=== PATIENT | male | born 1945 | race Caucasian/White ===

== ENCOUNTER 2016-07-14 18:41 | Inpatient (IN) | payer MEDICARE, BC ==
[~2016-07-14] VITALS: Ht 185.4 cm; Wt 87.3 kg
[2016-07-14 18:50] LABS: GLUCOSE,POINT OF CARE 142 MG/DL (70-110)
[2016-07-14] MEDS ORDERED: VITAD1000 PO (19:01)
[2016-07-14] MEDS ORDERED: SIMV-260 PO (19:01)
[2016-07-14] MEDS ORDERED: AMLO-512 PO (19:01)
[2016-07-14] MEDS ORDERED: ASPI81 PO (19:01)
[2016-07-14] MEDS ORDERED: METF500T4 PO (19:01)
[2016-07-14] MEDS ORDERED: CLOP75 PO (19:01)
[2016-07-14] MEDS ORDERED: FURO20 PO (19:01)
[2016-07-14] MEDS ORDERED: BENA20 PO (19:01)
[2016-07-14] MEDS ORDERED: LOSA25TA21 PO (19:01)
[2016-07-14] MEDS ORDERED: BENAZEPRIL PO (19:02)
[2016-07-14 19:40] LABS: BASOPHILS % (AUTO) 0.3 % (0.0-2.0); EOSINOPHILS % (AUTO) 0.1 % (1.0-6.0); HEMATOCRIT 37.7 % (41-53); HEMOGLOBIN 12.3 g/dL (13.5-17.5); LYMPHOCYTES # (AUTO) 0.5 K/uL (1.0-4.8); LYMPHOCYTES % (AUTO) 5.8 % (22.0-44.0); MEAN CORPUSCULAR HEMOGLOBIN 31.3 pg (26.0-34.0); MEAN CORPUSCULAR HGB CONC 32.7 G/dL (31.0-37.0); MEAN CORPUSCULAR VOLUME 96 fL (80-100); MONOCYTES # (AUTO) 0.7 K/uL (0.1-1.0); MONOCYTES % (AUTO) 8.2 % (2.0-9.0); NEUTROPHILS # (AUTO) 7.8 K/uL (1.8-7.7); NEUTROPHILS % (AUTO) 85.6 % (40.0-70.0); PLATELET COUNT (AUTO) 312 K/uL (150-450); RED BLOOD CELL COUNT(AUTO) 3.95 MIL/uL (4.50-5.90); RED CELL DISTRIBUTION WIDTH 15.9 % (11.5-14.5); WHITE BLOOD COUNT (AUTO) 9.1 K/uL (4.5-11.0)
[2016-07-14 19:47] LABS: ANION GAP 13 mmol/L (8-16); CALCIUM, TOTAL 9.3 mg/dL (8.8-10.5); CARBON DIOXIDE 27 mmol/L (22-29); CHLORIDE 93 mmol/L (98-107); CREATININE 1.13 mg/dL (0.60-1.30); GLOMERULAR FILTR. RATE CALC > 60 mL/min (>60); POTASSIUM 4.3 mmol/L (3.5-5.1); SODIUM SERUM 133 mmol/L (136-145); UREA NITROGEN, BLOOD 20 mg/dL (7-18)
[2016-07-14 19:53] LABS: RBC MORPHOLOGY COMMENT NORMAL RBC MORPH
[2016-07-14 19:54] LABS: PROTHROMBIN TIME 10.7 SEC (9.4-11.6)
[2016-07-14 20:04] LABS: B-TYPE NATRIURETIC PEPTIDE 1770 pg/mL (0-100)
[2016-07-14 20:19] LABS: ALANINE AMINOTRANSFERASE 62 U/L (12-78); ALBUMIN 4.2 g/dL (3.4-5.0); ASPARTATE AMINOTRANSFERASE 57 U/L (15-37); BILIRUBIN,TOTAL 0.5 mg/dL (0.1-1.0); CREATINE KINASE MB 3.2 ng/mL (0-5); CREATINE KINASE, TOTAL 106 U/L (39-308); TOTAL PROTEIN, SERUM 8.8 g/dL (6.4-8.2)
[2016-07-14] MEDS ORDERED: SODIUM CHLORIDE 0.9% 100 ML ONE (20:49)
[2016-07-14] MEDS ORDERED: IOVERSOL 350 MG/ML 100 ML VIAL ONE (20:50)
[2016-07-14] MEDS ORDERED: FUROSEMIDE 40 MG/4 ML VIAL IVP ONE (21:45)
[2016-07-14] MEDS ORDERED: ONDANSETRON HCL 4 MG/2 ML VIAL IVP PRN (22:30)
[2016-07-14] MEDS ORDERED: ALBUTEROL SULFATE 2.5 MG/0.5 ML NEB SOLUTION NEB PRN (22:30)
[2016-07-14] MEDS ORDERED: ACETAMINOPHEN 325 MG TABLET PO PRN (22:30)
[2016-07-14] MEDS ORDERED: OxyCODONE HCL/ACETAMINOPHEN 5-325 MG TABLET PO ONE (23:00)
[2016-07-14 23:45] VITALS: BP 143/92
[2016-07-15] MEDS: HEPARIN SODIUM,PORCINE 5,000 UNITS/ML VIAL SQ SCH ×3 (01:12→16:00)
[2016-07-15] MEDS ORDERED: 0.9% SODIUM CHLORIDE 5 ML NEB SOLUTION NEB ONE (04:02)
[2016-07-15 04:51] VITALS: BP 131/78
[2016-07-15 07:31] VITALS: BP 125/83
[2016-07-15] MEDS: CLOPIDOGREL BISULFATE 75 MG TABLET PO SCH (08:23)
[2016-07-15] MEDS: SIMVASTATIN 20 MG TABLET PO SCH (08:23)
[2016-07-15] MEDS: MetFORMIN HCL 500 MG TABLET PO SCH (08:23)
[2016-07-15] MEDS: AmLODIPine BESYLATE 10 MG TABLET PO SCH (08:23)
[2016-07-15] MEDS: CHOLECALCIFEROL (VIT D3) 1,000 UNITS TABLET PO SCH (08:24)
[2016-07-15] MEDS: ASPIRIN 81 MG CHEWABLE TABLET PO SCH (08:24)
[2016-07-15] MEDS: PANTOPRAZOLE SODIUM 40 MG DR TABLET PO SCH (08:24)
[2016-07-15] MEDS ORDERED: FUROSEMIDE 40 MG/4 ML VIAL IVP SCH (09:00)
[2016-07-15] MEDS ORDERED: FUROSEMIDE 20 MG/2 ML VIAL IVP SCH (09:00)
[2016-07-15] MEDS: LOSARTAN POTASSIUM 25 MG TABLET PO SCH (10:15)
[2016-07-15] MEDS: NITROGLYCERIN 2% (1 GM=INCH) PACKET TP SCH ×3 (10:15→17:02)
[2016-07-15 11:01] VITALS: BP 112/74
[2016-07-15] MEDS: OxyCODONE HCL/ACETAMINOPHEN 5-325 MG TABLET PO PRN (12:54)
[2016-07-15 14:53] VITALS: BP 102/64
[2016-07-15 19:38] VITALS: BP 106/71
[2016-07-15] MEDS: TIOTROPIUM BROMIDE 18 MCG/INH HANDIHALER [5] IH SCH (21:53)
[2016-07-15] MEDS: NICOTINE 21 MG/24 HOUR PATCH TD SCH (21:54)
[2016-07-15] MEDS: ZOLPIDEM TARTRATE 10 MG TABLET PO PRN (21:54)
[2016-07-15] MEDS: FUROSEMIDE 20 MG/2 ML VIAL IVP SCH (21:54)
[2016-07-15] MEDS: BUDESONIDE 0.5 MG/2 ML NEB SOLUTION NEB SCH (23:36)
[2016-07-15 23:47] VITALS: BP 107/77
[2016-07-16] VITALS (8 sets, daily range): BP systolic 97–118; BP diastolic 60–76
[2016-07-16] MEDS: HEPARIN SODIUM,PORCINE 5,000 UNITS/ML VIAL SQ SCH ×2 (00:01→08:59)
[2016-07-16] MEDS: NITROGLYCERIN 2% (1 GM=INCH) PACKET TP SCH ×4 (06:16→17:33)
[2016-07-16 06:36] LABS: EOSINOPHILS % (AUTO) 0.2 % (1.0-6.0); HEMATOCRIT 36.7 % (41-53); HEMOGLOBIN 11.9 g/dL (13.5-17.5); LYMPHOCYTES % (AUTO) 11.8 % (22.0-44.0); MEAN CORPUSCULAR HEMOGLOBIN 31.1 pg (26.0-34.0); MEAN CORPUSCULAR HGB CONC 32.4 G/dL (31.0-37.0); MEAN CORPUSCULAR VOLUME 96 fL (80-100); MONOCYTES # (AUTO) 0.8 K/uL (0.1-1.0); MONOCYTES % (AUTO) 10.1 % (2.0-9.0); NEUTROPHILS # (AUTO) 6.5 K/uL (1.8-7.7); NEUTROPHILS % (AUTO) 77.9 % (40.0-70.0); PLATELET COUNT (AUTO) 289 K/uL (150-450); RED BLOOD CELL COUNT(AUTO) 3.82 MIL/uL (4.50-5.90); WHITE BLOOD COUNT (AUTO) 8.3 K/uL (4.5-11.0)
[2016-07-16] MEDS: OxyCODONE HCL/ACETAMINOPHEN 5-325 MG TABLET PO PRN ×2 (06:44→21:52)
[2016-07-16 07:07] LABS: ALANINE AMINOTRANSFERASE 37 U/L (12-78); ALBUMIN 3.2 g/dL (3.4-5.0); ANION GAP 10 mmol/L (8-16); ASPARTATE AMINOTRANSFERASE 24 U/L (15-37); BILIRUBIN,TOTAL 0.7 mg/dL (0.1-1.0); CALCIUM, TOTAL 9.2 mg/dL (8.8-10.5); CARBON DIOXIDE 29 mmol/L (22-29); CHLORIDE 95 mmol/L (98-107); CREATININE 1.07 mg/dL (0.60-1.30); GLOMERULAR FILTR. RATE CALC > 60 mL/min (>60); SODIUM SERUM 134 mmol/L (136-145); TOTAL PROTEIN, SERUM 7.6 g/dL (6.4-8.2); UREA NITROGEN, BLOOD 21 mg/dL (7-18)
[2016-07-16] MEDS: BUDESONIDE 0.5 MG/2 ML NEB SOLUTION NEB SCH (08:26)
[2016-07-16] MEDS: LOSARTAN POTASSIUM 25 MG TABLET PO SCH (08:57)
[2016-07-16] MEDS: TIOTROPIUM BROMIDE 18 MCG/INH HANDIHALER [5] IH SCH (08:58)
[2016-07-16] MEDS: SIMVASTATIN 20 MG TABLET PO SCH (08:58)
[2016-07-16] MEDS: CLOPIDOGREL BISULFATE 75 MG TABLET PO SCH (08:58)
[2016-07-16] MEDS: PANTOPRAZOLE SODIUM 40 MG DR TABLET PO SCH (08:58)
[2016-07-16] MEDS: AmLODIPine BESYLATE 10 MG TABLET PO SCH (08:58)
[2016-07-16] MEDS: ASPIRIN 81 MG CHEWABLE TABLET PO SCH (08:58)
[2016-07-16] MEDS: CHOLECALCIFEROL (VIT D3) 1,000 UNITS TABLET PO SCH (08:58)
[2016-07-16] MEDS: FUROSEMIDE 20 MG/2 ML VIAL IVP SCH ×2 (08:59→22:07)
[2016-07-16] MEDS: NICOTINE 21 MG/24 HOUR PATCH TD SCH (08:59)
[2016-07-16] MEDS ORDERED: LEVALBUTEROL HCL 0.63 MG/3 ML NEB SOLUTION NEB PRN (10:15)
[2016-07-16] MEDS: METOPROLOL TARTRATE 25 MG TABLET PO SCH ×2 (11:27→22:07)
[2016-07-16] MEDS: AMIODARONE HCL 200 MG TABLET PO SCH ×2 (11:27→22:08)
[2016-07-16] MEDS ORDERED: BENA20 PO (16:53)
[2016-07-16] MEDS: MetFORMIN HCL 500 MG TABLET PO SCH (18:00)
[2016-07-16] MEDS ORDERED: RIVAROXABAN 15 MG TABLET PO SCH (18:00)
[2016-07-16] MEDS ORDERED: HEPARIN SODIUM,PORCINE 5,000 UNITS/ML VIAL IVP ONE (18:45)
[2016-07-16] MEDS ORDERED: HEPARIN SODIUM,PORCINE 5,000 UNITS/ML VIAL IVP PRN ×2 (18:45)
[2016-07-16 19:20] LABS: BASOPHILS % (AUTO) 0.3 % (0.0-2.0); EOSINOPHILS % (AUTO) 0.7 % (1.0-6.0); HEMATOCRIT 34.8 % (41-53); HEMOGLOBIN 11.4 g/dL (13.5-17.5); LYMPHOCYTES # (AUTO) 0.9 K/uL (1.0-4.8); LYMPHOCYTES % (AUTO) 10.9 % (22.0-44.0); MEAN CORPUSCULAR HEMOGLOBIN 31.2 pg (26.0-34.0); MEAN CORPUSCULAR HGB CONC 32.7 G/dL (31.0-37.0); MEAN CORPUSCULAR VOLUME 96 fL (80-100); MONOCYTES # (AUTO) 0.9 K/uL (0.1-1.0); MONOCYTES % (AUTO) 11.8 % (2.0-9.0); NEUTROPHILS # (AUTO) 6.1 K/uL (1.8-7.7); NEUTROPHILS % (AUTO) 76.3 % (40.0-70.0); PLATELET COUNT (AUTO) 301 K/uL (150-450); RED BLOOD CELL COUNT(AUTO) 3.64 MIL/uL (4.50-5.90)
[2016-07-16 19:31] LABS: INR 1.3 (0.9-1.1); PROTHROMBIN TIME 13.4 SEC (9.4-11.6)
[2016-07-16] MEDS: ZOLPIDEM TARTRATE 10 MG TABLET PO PRN (22:08)
[2016-07-16] MEDS: HEPARIN SODIUM 25000 UNITS/D5W 250 ML IV PRN (22:28)
[2016-07-17] VITALS (7 sets, daily range): BP systolic 95–116; BP diastolic 62–83
[2016-07-17] MEDS: NITROGLYCERIN 2% (1 GM=INCH) PACKET TP SCH ×5 (00:26→23:39)
[2016-07-17 06:49] LABS: BASOPHILS % (AUTO) 0.8 % (0.0-2.0); EOSINOPHILS % (AUTO) 1.1 % (1.0-6.0); HEMATOCRIT 37.7 % (41-53); HEMOGLOBIN 12.2 g/dL (13.5-17.5); LYMPHOCYTES # (AUTO) 0.9 K/uL (1.0-4.8); LYMPHOCYTES % (AUTO) 12.4 % (22.0-44.0); MEAN CORPUSCULAR HEMOGLOBIN 31.3 pg (26.0-34.0); MEAN CORPUSCULAR HGB CONC 32.4 G/dL (31.0-37.0); MEAN CORPUSCULAR VOLUME 96 fL (80-100); MONOCYTES # (AUTO) 0.6 K/uL (0.1-1.0); MONOCYTES % (AUTO) 7.6 % (2.0-9.0); NEUTROPHILS # (AUTO) 5.8 K/uL (1.8-7.7); NEUTROPHILS % (AUTO) 78.1 % (40.0-70.0); PLATELET COUNT (AUTO) 262 K/uL (150-450); RED CELL DISTRIBUTION WIDTH 16.2 % (11.5-14.5); WHITE BLOOD COUNT (AUTO) 7.4 K/uL (4.5-11.0)
[2016-07-17] MEDS: AMIODARONE HCL 200 MG TABLET PO SCH ×2 (08:20→20:31)
[2016-07-17] MEDS: NICOTINE 21 MG/24 HOUR PATCH TD SCH (08:20)
[2016-07-17] MEDS: FUROSEMIDE 20 MG/2 ML VIAL IVP SCH ×2 (08:20→20:31)
[2016-07-17] MEDS: LOSARTAN POTASSIUM 25 MG TABLET PO SCH (08:20)
[2016-07-17] MEDS: MetFORMIN HCL 500 MG TABLET PO SCH ×2 (08:21→17:30)
[2016-07-17] MEDS: PANTOPRAZOLE SODIUM 40 MG DR TABLET PO SCH (08:21)
[2016-07-17] MEDS: METOPROLOL TARTRATE 25 MG TABLET PO SCH ×2 (08:21→21:00)
[2016-07-17] MEDS: AmLODIPine BESYLATE 10 MG TABLET PO SCH (08:21)
[2016-07-17] MEDS: CHOLECALCIFEROL (VIT D3) 1,000 UNITS TABLET PO SCH (08:22)
[2016-07-17] MEDS: TIOTROPIUM BROMIDE 18 MCG/INH HANDIHALER [5] IH SCH (08:22)
[2016-07-17] MEDS: SIMVASTATIN 20 MG TABLET PO SCH (08:22)
[2016-07-17] MEDS: HEPARIN SODIUM 25000 UNITS/D5W 250 ML IV PRN (15:36)
[2016-07-18] VITALS (7 sets, daily range): BP systolic 97–125; BP diastolic 56–74
[2016-07-18] MEDS: NITROGLYCERIN 2% (1 GM=INCH) PACKET TP SCH ×4 (05:40→23:20)
[2016-07-18 06:42] LABS: BASOPHILS % (AUTO) 0.1 % (0.0-2.0); EOSINOPHILS % (AUTO) 0.9 % (1.0-6.0); HEMATOCRIT 32.5 % (41-53); HEMOGLOBIN 10.6 g/dL (13.5-17.5); LYMPHOCYTES # (AUTO) 0.9 K/uL (1.0-4.8); LYMPHOCYTES % (AUTO) 15.6 % (22.0-44.0); MEAN CORPUSCULAR HEMOGLOBIN 31.1 pg (26.0-34.0); MEAN CORPUSCULAR HGB CONC 32.6 G/dL (31.0-37.0); MEAN CORPUSCULAR VOLUME 95 fL (80-100); MONOCYTES # (AUTO) 0.8 K/uL (0.1-1.0); NEUTROPHILS # (AUTO) 4.2 K/uL (1.8-7.7); NEUTROPHILS % (AUTO) 69.4 % (40.0-70.0); PLATELET COUNT (AUTO) 265 K/uL (150-450); RED BLOOD CELL COUNT(AUTO) 3.41 MIL/uL (4.50-5.90); RED CELL DISTRIBUTION WIDTH 15.8 % (11.5-14.5)
[2016-07-18] MEDS: MetFORMIN HCL 500 MG TABLET PO SCH ×2 (08:00→18:06)
[2016-07-18] MEDS: FUROSEMIDE 20 MG/2 ML VIAL IVP SCH ×2 (09:22→21:00)
[2016-07-18] MEDS: OXYGEN THERAPY IH SCH ×2 (09:22→20:41)
[2016-07-18] MEDS: NICOTINE 21 MG/24 HOUR PATCH TD SCH (09:26)
[2016-07-18] MEDS: TIOTROPIUM BROMIDE 18 MCG/INH HANDIHALER [5] IH SCH (09:27)
[2016-07-18] MEDS ORDERED: FentaNYL CITRATE-PF 100 MCG/2 ML VIAL ONE (11:37)
[2016-07-18] MEDS ORDERED: MIDAZOLAM HCL 2 MG/2 ML VIAL ONE (11:37)
[2016-07-18] MEDS ORDERED: LIDOCAINE HCL/PF 1% 30 ML VIAL ONE (11:38)
[2016-07-18] MEDS ORDERED: MIDAZOLAM HCL 2 MG/2 ML VIAL IVP ONE (12:21)
[2016-07-18] MEDS ORDERED: FentaNYL CITRATE-PF 100 MCG/2 ML VIAL IVP ONE (12:21)
[2016-07-18] MEDS: LOSARTAN POTASSIUM 25 MG TABLET PO SCH (14:00)
[2016-07-18] MEDS: SIMVASTATIN 20 MG TABLET PO SCH (14:27)
[2016-07-18] MEDS: METOPROLOL TARTRATE 25 MG TABLET PO SCH ×2 (14:27→21:00)
[2016-07-18] MEDS: PANTOPRAZOLE SODIUM 40 MG DR TABLET PO SCH (14:27)
[2016-07-18] MEDS: AMIODARONE HCL 200 MG TABLET PO SCH ×2 (14:28→20:41)
[2016-07-18] MEDS: CHOLECALCIFEROL (VIT D3) 1,000 UNITS TABLET PO SCH (14:28)
[2016-07-18] MEDS: AmLODIPine BESYLATE 10 MG TABLET PO SCH (14:30)
[2016-07-18] MEDS ORDERED: HEPARIN SODIUM,PORCINE 5,000 UNITS/ML VIAL IVP PRN ×2 (17:15)
[2016-07-18] MEDS ORDERED: RIVAROXABAN 15 MG TABLET PO SCH (18:00)
[2016-07-18 18:16] LABS: BASOPHILS % (AUTO) 0.1 % (0.0-2.0); EOSINOPHILS % (AUTO) 0.9 % (1.0-6.0); HEMATOCRIT 33.9 % (41-53); LYMPHOCYTES # (AUTO) 0.8 K/uL (1.0-4.8); LYMPHOCYTES % (AUTO) 14.3 % (22.0-44.0); MEAN CORPUSCULAR HEMOGLOBIN 30.9 pg (26.0-34.0); MEAN CORPUSCULAR HGB CONC 32.4 G/dL (31.0-37.0); MEAN CORPUSCULAR VOLUME 95 fL (80-100); MONOCYTES # (AUTO) 0.8 K/uL (0.1-1.0); MONOCYTES % (AUTO) 15.1 % (2.0-9.0); NEUTROPHILS # (AUTO) 3.8 K/uL (1.8-7.7); NEUTROPHILS % (AUTO) 69.6 % (40.0-70.0); PLATELET COUNT (AUTO) 300 K/uL (150-450); RED BLOOD CELL COUNT(AUTO) 3.56 MIL/uL (4.50-5.90); RED CELL DISTRIBUTION WIDTH 15.9 % (11.5-14.5); WHITE BLOOD COUNT (AUTO) 5.4 K/uL (4.5-11.0)
[2016-07-18 18:29] LABS: PROTHROMBIN TIME 10.5 SEC (9.4-11.6)
[2016-07-18] MEDS: HEPARIN SODIUM 25000 UNITS/D5W 250 ML IV PRN (20:46)
[2016-07-19] VITALS (16 sets, daily range): BP systolic 100–153; BP diastolic 61–90
[2016-07-19] MEDS: HEPARIN SODIUM 25000 UNITS/D5W 250 ML IV PRN (04:14)
[2016-07-19] MEDS: NITROGLYCERIN 2% (1 GM=INCH) PACKET TP SCH ×2 (05:49→11:50)
[2016-07-19 06:58] LABS: BASOPHILS # (AUTO) 0.01 K/uL (0.00-0.20); BASOPHILS % (AUTO) 0.1 % (0.0-2.0); EOSINOPHILS # (AUTO) 0.02 K/uL (0.00-0.70); EOSINOPHILS % (AUTO) 0.22 % (1.0-6.0); HEMATOCRIT 32.2 % (41-53); HEMOGLOBIN 10.6 g/dL (13.5-17.5); LYMPHOCYTES # (AUTO) 0.7 K/uL (1.0-4.8); LYMPHOCYTES % (AUTO) 8.4 % (22.0-44.0); MEAN CORPUSCULAR HEMOGLOBIN 31.4 pg (26.0-34.0); MEAN CORPUSCULAR VOLUME 95 fL (80-100); MONOCYTES # (AUTO) 1.2 K/uL (0.1-1.0); MONOCYTES % (AUTO) 15.3 % (2.0-9.0); PLATELET COUNT (AUTO) 302 K/uL (150-450); RED BLOOD CELL COUNT(AUTO) 3.38 MIL/uL (4.50-5.90); RED CELL DISTRIBUTION WIDTH 15.3 % (11.5-14.5); WHITE BLOOD COUNT (AUTO) 7.8 K/uL (4.5-11.0)
[2016-07-19] MEDS: MetFORMIN HCL 500 MG TABLET PO SCH (07:59)
[2016-07-19] MEDS: OXYGEN THERAPY IH SCH ×2 (08:11→21:07)
[2016-07-19] MEDS: CHOLECALCIFEROL (VIT D3) 1,000 UNITS TABLET PO SCH (08:12)
[2016-07-19] MEDS: FUROSEMIDE 20 MG/2 ML VIAL IVP SCH (08:12)
[2016-07-19] MEDS: AmLODIPine BESYLATE 10 MG TABLET PO SCH (08:12)
[2016-07-19] MEDS: AMIODARONE HCL 200 MG TABLET PO SCH (08:12)
[2016-07-19] MEDS: TIOTROPIUM BROMIDE 18 MCG/INH HANDIHALER [5] IH SCH (08:12)
[2016-07-19] MEDS: METOPROLOL TARTRATE 25 MG TABLET PO SCH (08:12)
[2016-07-19] MEDS: PANTOPRAZOLE SODIUM 40 MG DR TABLET PO SCH (08:12)
[2016-07-19] MEDS: SIMVASTATIN 20 MG TABLET PO SCH (08:12)
[2016-07-19] MEDS: NICOTINE 21 MG/24 HOUR PATCH TD SCH (08:13)
[2016-07-19] MEDS: LOSARTAN POTASSIUM 25 MG TABLET PO SCH (08:13)
[2016-07-19] MEDS ORDERED: CLOPIDOGREL BISULFATE 75 MG TABLET PO SCH (09:00)
[2016-07-19] MEDS ORDERED: IOHEXOL 300 MG/ML 150 ML VIAL ONE (12:43)
[2016-07-19] MEDS ORDERED: HEPARIN SODIUM 1000 UNITS/NS 1,000 ML ONE (12:43)
[2016-07-19] MEDS ORDERED: SODIUM BICARBONATE 50 MEQ/50 ML VIAL ONE (12:43)
[2016-07-19] MEDS ORDERED: LIDOCAINE HCL/PF 1% 30 ML VIAL ONE (12:43)
[2016-07-19] MEDS ORDERED: SODIUM CHLORIDE 0.9% 500 ML IV ONE (13:24)
[2016-07-19] MEDS ORDERED: HEPARIN SODIUM 2,000 UNITS in HEPARIN SODIUM 1000 UNITS/NS 1,000 ML IARTER ONE (13:24)
[2016-07-19] MEDS ORDERED: LIDOCAINE 1% 30 ML/SOD BICARB 8.4% 4 ML SQ ONE (13:30)
[2016-07-19] MEDS ORDERED: IOHEXOL 300 MG/ML 150 ML VIAL IARTER ONE (13:30)
[2016-07-19] MEDS ORDERED: VERAPAMIL HCL 2.5 MG/ML 2 ML VIAL ONE (13:34)
[2016-07-19] MEDS ORDERED: NITROGLYCERIN 50 MG/D5% WATER 250 ML ONE (13:34)
[2016-07-19] MEDS ORDERED: FUROSEMIDE 40 MG/4 ML VIAL ONE (13:36)
[2016-07-19] MEDS ORDERED: IOHEXOL 300 MG/ML 50 ML VIAL ONE (13:41)
[2016-07-19] MEDS ORDERED: IOHEXOL 300 MG/ML 100 ML VIAL ONE ×2 (13:41→14:09)
[2016-07-19] MEDS ORDERED: HEPARIN SODIUM,PORCINE 5,000 UNITS/ML VIAL IVP ONE (13:45)
[2016-07-19] MEDS ORDERED: FUROSEMIDE 40 MG/4 ML VIAL IVP ONE (13:45)
[2016-07-19] MEDS ORDERED: IOHEXOL 300 MG/ML 50 ML VIAL IARTER ONE (13:45)
[2016-07-19] MEDS ORDERED: IOHEXOL 300 MG/ML 100 ML VIAL IARTER ONE (14:30)
[2016-07-19] MEDS ORDERED: VERAPAMIL HCL 2.5 MG/ML 2 ML VIAL ICOR ONE (14:30)
[2016-07-19] MEDS ORDERED: NITROGLYCERIN/D5W 50 MG/250 ML IV BOTTLE ICOR ONE (14:30)
[2016-07-19] MEDS ORDERED: FUROSEMIDE 40 MG/4 ML VIAL IVP SCH (21:00)
[2016-07-19] MEDS: CARVEDILOL 6.25 MG TABLET PO SCH (21:16)
[2016-07-19] MEDS: OxyCODONE HCL/ACETAMINOPHEN 5-325 MG TABLET PO PRN (21:16)
[2016-07-20] VITALS (8 sets, daily range): BP systolic 101–125; BP diastolic 57–73
[2016-07-20] MEDS: NITROGLYCERIN 2% (1 GM=INCH) PACKET TP SCH ×4 (01:19→19:19)
[2016-07-20] MEDS: OxyCODONE HCL/ACETAMINOPHEN 5-325 MG TABLET PO PRN ×2 (04:37→11:01)
[2016-07-20 06:14] LABS: BASOPHILS % (AUTO) 0.1 % (0.0-2.0); EOSINOPHILS % (AUTO) 1.1 % (1.0-6.0); HEMATOCRIT 31.9 % (41-53); HEMOGLOBIN 10.5 g/dL (13.5-17.5); LYMPHOCYTES # (AUTO) 0.6 K/uL (1.0-4.8); LYMPHOCYTES % (AUTO) 9.3 % (22.0-44.0); MEAN CORPUSCULAR HEMOGLOBIN 31.3 pg (26.0-34.0); MEAN CORPUSCULAR VOLUME 95 fL (80-100); MONOCYTES # (AUTO) 1.1 K/uL (0.1-1.0); MONOCYTES % (AUTO) 17.8 % (2.0-9.0); NEUTROPHILS # (AUTO) 4.5 K/uL (1.8-7.7); NEUTROPHILS % (AUTO) 71.7 % (40.0-70.0); PLATELET COUNT (AUTO) 273 K/uL (150-450); RED BLOOD CELL COUNT(AUTO) 3.36 MIL/uL (4.50-5.90); RED CELL DISTRIBUTION WIDTH 15.5 % (11.5-14.5); WHITE BLOOD COUNT (AUTO) 6.3 K/uL (4.5-11.0)
[2016-07-20 06:20] LABS: ANION GAP 7 mmol/L (8-16); CALCIUM, TOTAL 8.9 mg/dL (8.8-10.5); CARBON DIOXIDE 31 mmol/L (22-29); CHLORIDE 96 mmol/L (98-107); CREATINE KINASE, TOTAL 18 U/L (39-308); GLOMERULAR FILTR. RATE CALC 55 mL/min (>60); POTASSIUM 4.4 mmol/L (3.5-5.1); SODIUM SERUM 134 mmol/L (136-145); UREA NITROGEN, BLOOD 35 mg/dL (7-18)
[2016-07-20] MEDS: TIOTROPIUM BROMIDE 18 MCG/INH HANDIHALER [5] IH SCH (09:00)
[2016-07-20] MEDS: OXYGEN THERAPY IH SCH ×2 (09:00→20:06)
[2016-07-20] MEDS: LOSARTAN POTASSIUM 25 MG TABLET PO SCH (10:15)
[2016-07-20] MEDS: PANTOPRAZOLE SODIUM 40 MG DR TABLET PO SCH (10:15)
[2016-07-20] MEDS: NICOTINE 21 MG/24 HOUR PATCH TD SCH (10:15)
[2016-07-20] MEDS: SIMVASTATIN 20 MG TABLET PO SCH (10:16)
[2016-07-20] MEDS: CARVEDILOL 6.25 MG TABLET PO SCH ×2 (11:01→20:07)
[2016-07-20] MEDS: OxyCODONE HCL 5 MG IR TABLET PO SCH ×2 (14:00→20:06)
[2016-07-21] VITALS (7 sets, daily range): BP systolic 110–136; BP diastolic 59–82
[2016-07-21] MEDS: NITROGLYCERIN 2% (1 GM=INCH) PACKET TP SCH ×4 (00:29→17:46)
[2016-07-21 07:22] LABS: HEMATOCRIT 33.5 % (41-53); LYMPHOCYTES # (AUTO) 0.8 K/uL (1.0-4.8); MEAN CORPUSCULAR HEMOGLOBIN 31.1 pg (26.0-34.0); MEAN CORPUSCULAR HGB CONC 32.7 G/dL (31.0-37.0); MEAN CORPUSCULAR VOLUME 95 fL (80-100); MONOCYTES # (AUTO) 1.1 K/uL (0.1-1.0); MONOCYTES % (AUTO) 15.8 % (2.0-9.0); NEUTROPHILS # (AUTO) 4.9 K/uL (1.8-7.7); NEUTROPHILS % (AUTO) 71.2 % (40.0-70.0); PLATELET COUNT (AUTO) 329 K/uL (150-450); RED BLOOD CELL COUNT(AUTO) 3.53 MIL/uL (4.50-5.90); RED CELL DISTRIBUTION WIDTH 15.1 % (11.5-14.5); WHITE BLOOD COUNT (AUTO) 6.8 K/uL (4.5-11.0)
[2016-07-21 07:30] LABS: PROTHROMBIN TIME 10.7 SEC (9.4-11.6)
[2016-07-21 07:34] LABS: CALCIUM, TOTAL 8.8 mg/dL (8.8-10.5); CREATININE 1.2 mg/dL (0.60-1.30); MAGNESIUM 1.9 mg/dL (1.80-2.40); POTASSIUM 4.2 mmol/L (3.5-5.1)
[2016-07-21] MEDS: NICOTINE 21 MG/24 HOUR PATCH TD SCH (08:10)
[2016-07-21] MEDS: OxyCODONE HCL 5 MG IR TABLET PO SCH ×2 (08:21→20:38)
[2016-07-21] MEDS: OXYGEN THERAPY IH SCH ×2 (08:29→20:37)
[2016-07-21] MEDS ORDERED: HEPARIN SODIUM 1000 UNITS/NS 500 ML ONE (13:11)
[2016-07-21] MEDS: PANTOPRAZOLE SODIUM 40 MG DR TABLET PO SCH (14:36)
[2016-07-21] MEDS: CARVEDILOL 6.25 MG TABLET PO SCH ×2 (14:36→20:38)
[2016-07-21] MEDS: LOSARTAN POTASSIUM 25 MG TABLET PO SCH (14:37)
[2016-07-21] MEDS: SIMVASTATIN 20 MG TABLET PO SCH (14:37)
[2016-07-21] MEDS: OxyCODONE HCL/ACETAMINOPHEN 5-325 MG TABLET PO PRN (14:39)
[2016-07-21] MEDS: TIOTROPIUM BROMIDE 18 MCG/INH HANDIHALER [5] IH SCH (15:50)
[2016-07-22] VITALS (16 sets, daily range): BP systolic 121–146; BP diastolic 59–88
[2016-07-22] MEDS: NITROGLYCERIN 2% (1 GM=INCH) PACKET TP SCH ×4 (00:19→17:24)
[2016-07-22] MEDS: OxyCODONE HCL/ACETAMINOPHEN 5-325 MG TABLET PO PRN (06:02)
[2016-07-22 06:53] LABS: PROTHROMBIN TIME 10.1 SEC (9.4-11.6)
[2016-07-22] MEDS ORDERED: KETAMINE HCL 50 MG/ML 10 ML VIAL IVP ONE (07:08)
[2016-07-22] MEDS ORDERED: FentaNYL CITRATE-PF 100 MCG/2 ML VIAL IVP ONE (07:08)
[2016-07-22] MEDS ORDERED: MIDAZOLAM HCL 2 MG/2 ML VIAL IVP ONE (07:08)
[2016-07-22 07:11] LABS: ALANINE AMINOTRANSFERASE 33 U/L (12-78); ALBUMIN 2.6 g/dL (3.4-5.0); ANION GAP 5 mmol/L (8-16); ASPARTATE AMINOTRANSFERASE 19 U/L (15-37); BILIRUBIN,TOTAL 0.4 mg/dL (0.1-1.0); CALCIUM, TOTAL 8.8 mg/dL (8.8-10.5); CARBON DIOXIDE 32 mmol/L (22-29); CHLORIDE 97 mmol/L (98-107); CREATININE 1.15 mg/dL (0.60-1.30); GLOMERULAR FILTR. RATE CALC > 60 mL/min (>60); POTASSIUM 4.6 mmol/L (3.5-5.1); SODIUM SERUM 134 mmol/L (136-145); TOTAL PROTEIN, SERUM 6.8 g/dL (6.4-8.2); UREA NITROGEN, BLOOD 26 mg/dL (7-18)
[2016-07-22 07:16] LABS: BASOPHILS # (AUTO) 0.01 K/uL (0.00-0.20); BASOPHILS % (AUTO) 0.2 % (0.0-2.0); EOSINOPHILS % (AUTO) 3.29 % (1.0-6.0); HEMATOCRIT 34.5 % (41-53); HEMOGLOBIN 11.2 g/dL (13.5-17.5); LYMPHOCYTES # (AUTO) 0.9 K/uL (1.0-4.8); LYMPHOCYTES % (AUTO) 14.9 % (22.0-44.0); MEAN CORPUSCULAR HEMOGLOBIN 30.7 pg (26.0-34.0); MEAN CORPUSCULAR HGB CONC 32.3 G/dL (31.0-37.0); MEAN CORPUSCULAR VOLUME 95 fL (80-100); MONOCYTES # (AUTO) 0.9 K/uL (0.1-1.0); MONOCYTES % (AUTO) 15.1 % (2.0-9.0); NEUTROPHILS # (AUTO) 4.1 K/uL (1.8-7.7); NEUTROPHILS % (AUTO) 66.5 % (40.0-70.0); PLATELET COUNT (AUTO) 388 K/uL (150-450); RED BLOOD CELL COUNT(AUTO) 3.63 MIL/uL (4.50-5.90); RED CELL DISTRIBUTION WIDTH 16.1 % (11.5-14.5); WHITE BLOOD COUNT (AUTO) 6.2 K/uL (4.5-11.0)
[2016-07-22] MEDS: TIOTROPIUM BROMIDE 18 MCG/INH HANDIHALER [5] IH SCH (08:52)
[2016-07-22] MEDS: NICOTINE 21 MG/24 HOUR PATCH TD SCH (08:56)
[2016-07-22] MEDS: OXYGEN THERAPY IH SCH ×2 (08:57→20:20)
[2016-07-22] MEDS: LOSARTAN POTASSIUM 25 MG TABLET PO SCH (09:00)
[2016-07-22] MEDS: OxyCODONE HCL 5 MG IR TABLET PO SCH ×2 (09:00→20:17)
[2016-07-22] MEDS: PANTOPRAZOLE SODIUM 40 MG DR TABLET PO SCH (09:00)
[2016-07-22] MEDS: CARVEDILOL 6.25 MG TABLET PO SCH ×2 (09:00→20:17)
[2016-07-22] MEDS ORDERED: SODIUM CHLORIDE 0.9% 1,000 ML IV ONE ×2 (11:30→11:32)
[2016-07-22] MEDS ORDERED: LIDOCAINE HCL/PF 1% 30 ML VIAL ONE ×2 (13:07→13:58)
[2016-07-22] MEDS ORDERED: SODIUM BICARBONATE 50 MEQ/50 ML VIAL ONE (13:07)
[2016-07-22] MEDS ORDERED: LIDOCAINE 1% 30 ML/SOD BICARB 8.4% 4 ML SQ ONE (14:00)
[2016-07-22] MEDS ORDERED: BUPIVACAINE LIPOSOME/PF 1.3%-13.3MG/ML SUSPENSION 20 ML VIAL INJ ONE (14:00)
[2016-07-22] MEDS: SIMVASTATIN 20 MG TABLET PO SCH (15:59)
[2016-07-22] MEDS ORDERED: SODIUM CHLORIDE 0.9% 100 ML ONE (20:17)
[2016-07-22] MEDS: CeFAZolin 1 GM/DEXTROSE 50 ML IV SCH (20:25)
[2016-07-22] MEDS ORDERED: EPHEDrine SULFATE 50 MG/ML VIAL IM ONE ×2 (22:19→22:24)
[2016-07-22] MEDS ORDERED: PHENYLEPHRINE HCL 10 MG/ML VIAL IVP ONE ×2 (22:19→22:24)
[2016-07-22] MEDS ORDERED: 0.9% SODIUM CHLORIDE 10 ML VIAL IVP ONE ×2 (22:19→22:24)
[2016-07-22] MEDS ORDERED: PROPOFOL 1% 20 ML VIAL IVP ONE ×2 (22:19→22:24)
[2016-07-23 00:01] VITALS: BP 120/72
[2016-07-23] MEDS: NITROGLYCERIN 2% (1 GM=INCH) PACKET TP SCH ×4 (00:22→18:56)
[2016-07-23] MEDS: OxyCODONE HCL/ACETAMINOPHEN 5-325 MG TABLET PO PRN (01:55)
[2016-07-23] MEDS: CeFAZolin 1 GM/DEXTROSE 50 ML IV SCH ×2 (01:55→09:49)
[2016-07-23 05:04] VITALS: BP 126/75
[2016-07-23] MEDS: OXYGEN THERAPY IH SCH ×2 (08:00→20:30)
[2016-07-23] MEDS ORDERED: FUROSEMIDE 40 MG/4 ML VIAL IVP ONE ×2 (08:45→16:00)
[2016-07-23] MEDS: SIMVASTATIN 20 MG TABLET PO SCH (09:00)
[2016-07-23] MEDS: NICOTINE 21 MG/24 HOUR PATCH TD SCH (09:00)
[2016-07-23] MEDS: OxyCODONE HCL 5 MG IR TABLET PO SCH ×2 (09:00→20:15)
[2016-07-23] MEDS: CARVEDILOL 6.25 MG TABLET PO SCH ×2 (09:00→20:15)
[2016-07-23] MEDS: TIOTROPIUM BROMIDE 18 MCG/INH HANDIHALER [5] IH SCH (09:00)
[2016-07-23] MEDS: PANTOPRAZOLE SODIUM 40 MG DR TABLET PO SCH (09:00)
[2016-07-23] MEDS: LOSARTAN POTASSIUM 25 MG TABLET PO SCH (09:00)
[2016-07-23 10:35] LABS: ABG A-A DIFF O2 590.5 mmHg (10-20.0); ABG BASE EXCESS -0.2 mmol/L (-2.0-3.0); ABG HCO3 23.2 mmol/L (22.0-26.0); ABG OXYHEMOGLOBIN 87.6 % (94.0-100.0); ABG PCO2 60 mmHg (35-45); ABG PH 7.268 (7.35-7.450); ALLEN TEST, BLOOD GAS Positive
[2016-07-23 12:00] VITALS: BP 139/99
[2016-07-23] MEDS: MethylPREDNISolone SOD SUCC 125 MG/2 ML VIAL IVP SCH ×2 (12:00→18:56)
[2016-07-23 12:34] LABS: ABG A-A DIFF O2 572.3 mmHg (10-20.0); ABG BASE EXCESS 0.8 mmol/L (-2.0-3.0); ABG HCO3 24.4 mmol/L (22.0-26.0); ABG OXYHEMOGLOBIN 94.2 % (94.0-100.0); ABG PCO2 55 mmHg (35-45); ABG PH 7.311 (7.35-7.450); ALLEN TEST, BLOOD GAS Positive; TEMPERATURE, FAHRENHEIT, BG 98.6 FAHREN (96.0-98.6)
[2016-07-23 13:28] LABS: CREATINE KINASE, TOTAL 156 U/L (39-308)
[2016-07-23] MEDS: HALOPERIDOL LACTATE 5 MG/ML VIAL IVP PRN ×2 (15:14→20:15)
[2016-07-23 16:00] VITALS: BP 137/97
[2016-07-23 18:09] LABS: ABG A-A DIFF O2 575.9 mmHg (10-20.0); ABG BASE EXCESS -1.7 mmol/L (-2.0-3.0); ABG HCO3 22.7 mmol/L (22.0-26.0); ABG OXYHEMOGLOBIN 95.2 % (94.0-100.0); ABG PCO2 48 mmHg (35-45); ABG PH 7.326 (7.35-7.450); TEMPERATURE, FAHRENHEIT, BG 98.6 FAHREN (96.0-98.6)
[2016-07-23 18:10] LABS: ALLEN TEST, BLOOD GAS Positive
[2016-07-23] MEDS: ALBUTEROL SULFATE 2.5 MG/0.5 ML NEB SOLUTION NEB SCH ×2 (19:19→22:34)
[2016-07-23] MEDS: IPRATROPIUM BROMIDE 0.5 MG/2.5 ML NEB SOLUTION NEB SCH ×2 (19:20→22:34)
[2016-07-23 20:00] VITALS: BP 134/84
[2016-07-24] VITALS: BP 143/76
[2016-07-24] MEDS: MethylPREDNISolone SOD SUCC 125 MG/2 ML VIAL IVP SCH ×4 (00:54→17:43)
[2016-07-24] MEDS: NITROGLYCERIN 2% (1 GM=INCH) PACKET TP SCH ×4 (00:54→17:43)
[2016-07-24] MEDS: IPRATROPIUM BROMIDE 0.5 MG/2.5 ML NEB SOLUTION NEB SCH ×5 (02:19→22:32)
[2016-07-24] MEDS: ALBUTEROL SULFATE 2.5 MG/0.5 ML NEB SOLUTION NEB SCH ×6 (02:19→22:32)
[2016-07-24 04:00] VITALS: BP 154/50
[2016-07-24] MEDS: OXYGEN THERAPY IH SCH ×2 (07:49→19:05)
[2016-07-24 08:00] VITALS: BP 140/80
[2016-07-24] MEDS ORDERED: FUROSEMIDE 40 MG/4 ML VIAL IVP ONE (08:15)
[2016-07-24 08:21] LABS: EOSINOPHILS % (AUTO) 0 % (1.0-6.0); HEMATOCRIT 36.8 % (41-53); LYMPHOCYTES # (AUTO) 0.3 K/uL (1.0-4.8); LYMPHOCYTES % (AUTO) 4.1 % (22.0-44.0); MEAN CORPUSCULAR HEMOGLOBIN 31.1 pg (26.0-34.0); MEAN CORPUSCULAR HGB CONC 32.6 G/dL (31.0-37.0); MEAN CORPUSCULAR VOLUME 95 fL (80-100); MONOCYTES # (AUTO) 0.3 K/uL (0.1-1.0); MONOCYTES % (AUTO) 3.5 % (2.0-9.0); NEUTROPHILS # (AUTO) 6.8 K/uL (1.8-7.7); PLATELET COUNT (AUTO) 389 K/uL (150-450); RED BLOOD CELL COUNT(AUTO) 3.87 MIL/uL (4.50-5.90); RED CELL DISTRIBUTION WIDTH 15.9 % (11.5-14.5); WHITE BLOOD COUNT (AUTO) 7.4 K/uL (4.5-11.0)
[2016-07-24 08:32] LABS: CALCIUM, TOTAL 9.3 mg/dL (8.8-10.5); CREATININE 1.66 mg/dL (0.60-1.30); NEUTROPHILS % (AUTO) 92.4 % (40.0-70.0); POTASSIUM 4.6 mmol/L (3.5-5.1)
[2016-07-24] MEDS: PANTOPRAZOLE SODIUM 40 MG DR TABLET PO SCH ×2 (09:00→09:01)
[2016-07-24] MEDS: LOSARTAN POTASSIUM 25 MG TABLET PO SCH ×2 (09:00→09:02)
[2016-07-24] MEDS: CARVEDILOL 6.25 MG TABLET PO SCH ×3 (09:00→22:10)
[2016-07-24] MEDS: OxyCODONE HCL 5 MG IR TABLET PO SCH ×3 (09:00→22:10)
[2016-07-24] MEDS: SIMVASTATIN 20 MG TABLET PO SCH ×2 (09:00→09:02)
[2016-07-24] MEDS: TIOTROPIUM BROMIDE 18 MCG/INH HANDIHALER [5] IH SCH (09:00)
[2016-07-24] MEDS: NICOTINE 21 MG/24 HOUR PATCH TD SCH (09:01)
[2016-07-24] MEDS: HALOPERIDOL LACTATE 5 MG/ML VIAL IVP PRN (09:02)
[2016-07-24 10:06] LABS: ABG A-A DIFF O2 209.4 mmHg (10-20.0); ABG BASE EXCESS 2.4 mmol/L (-2.0-3.0); ABG OXYHEMOGLOBIN 94.3 % (94.0-100.0); ABG PCO2 33 mmHg (35-45); ABG PH 7.502 (7.35-7.450); TEMPERATURE, FAHRENHEIT, BG 98.6 FAHREN (96.0-98.6)
[2016-07-24 10:07] LABS: ALLEN TEST, BLOOD GAS Positive; IPAP, BG 14 cm H2O
[2016-07-24 12:00] VITALS: BP 134/82
[2016-07-24 12:48] LABS: ABG A-A DIFF O2 228.4 mmHg (10-20.0); ABG BASE EXCESS 1.2 mmol/L (-2.0-3.0); ABG HCO3 26.5 mmol/L (22.0-26.0); ABG OXYHEMOGLOBIN 93.6 % (94.0-100.0); ABG PCO2 25 mmHg (35-45); ABG PH 7.584 (7.35-7.450); TEMPERATURE, FAHRENHEIT, BG 98.2 FAHREN (96.0-98.6)
[2016-07-24] MEDS ORDERED: ALBUMIN HUMAN 25%-25GM/100ML 100 ML IV ONE (13:00)
[2016-07-24] MEDS ORDERED: SODIUM CHLORIDE 0.9% 500 ML IV ONE (15:30)
[2016-07-24 16:00] VITALS: BP 136/90
[2016-07-24] MEDS: PIPERACILLIN/TAZO 3.375 GM/D5W 50 ML IV SCH ×2 (16:00→20:48)
[2016-07-24 16:03] LABS: ALLEN TEST, BLOOD GAS Positive
[2016-07-24 16:04] LABS: IPAP, BG 11 cm H2O
[2016-07-24 16:17] LABS: ABG A-A DIFF O2 588.5 mmHg (10-20.0); ABG BASE EXCESS -0.1 mmol/L (-2.0-3.0); ABG HCO3 24.1 mmol/L (22.0-26.0); ABG OXYHEMOGLOBIN 92.7 % (94.0-100.0); ABG PCO2 46 mmHg (35-45); ABG PH 7.362 (7.35-7.450); ALLEN TEST, BLOOD GAS Positive; TEMPERATURE, FAHRENHEIT, BG 98.6 FAHREN (96.0-98.6)
[2016-07-24] MEDS ORDERED: ETOMIDATE 2 MG/ML 10 ML VIAL IVP ONE (16:34)
[2016-07-24] MEDS ORDERED: VECURONIUM BROMIDE 10 MG/VIAL IVP ONE (16:34)
[2016-07-24] MEDS ORDERED: SODIUM CHLORIDE 0.9% 1,000 ML IV ONE (17:01)
[2016-07-24] MEDS: PROPOFOL 1000 MG/ISO-OSM 100 ML IV PRN ×2 (17:43→22:11)
[2016-07-24 20:00] VITALS: BP 140/80
[2016-07-24] MEDS ORDERED: 0.9% SODIUM CHLORIDE 10 ML SYRINGE IVP PRN (20:00)
[2016-07-25] VITALS: BP 130/75
[2016-07-25] MEDS: MethylPREDNISolone SOD SUCC 125 MG/2 ML VIAL IVP SCH ×5 (00:59→23:45)
[2016-07-25] MEDS: NITROGLYCERIN 2% (1 GM=INCH) PACKET TP SCH ×5 (00:59→23:45)
[2016-07-25] MEDS ORDERED: 0.9% SODIUM CHLORIDE 5 ML NEB SOLUTION NEB ONE (01:34)
[2016-07-25] MEDS: ALBUTEROL SULFATE 2.5 MG/0.5 ML NEB SOLUTION NEB SCH ×6 (02:34→22:50)
[2016-07-25] MEDS: PROPOFOL 1000 MG/ISO-OSM 100 ML IV PRN ×4 (02:40→18:45)
[2016-07-25] MEDS: PIPERACILLIN/TAZO 3.375 GM/D5W 50 ML IV SCH ×4 (02:40→20:56)
[2016-07-25 03:20] LABS: APPEARANCE,URINE CLOUDY (CLEAR); GLUCOSE, URINE (UA) 100 mg/dL (NEGATIVE); KETONES,URINE NEGATIVE (NEGATIVE); LEUKOCYTE ESTERASE ,URINE NEGATIVE (NEGATIVE); OCCULT BLOOD,URINE SMALL (NEGATIVE); PROTEIN,URINE POS 1+ (NEGATIVE)
[2016-07-25 04:00] VITALS: BP 115/63
[2016-07-25 05:42] LABS: CALCIUM, TOTAL 8.9 mg/dL (8.8-10.5); CREATININE 1.81 mg/dL (0.60-1.30); POTASSIUM 4.4 mmol/L (3.5-5.1)
[2016-07-25 06:18] LABS: EOSINOPHILS % (AUTO) 0.05 % (1.0-6.0); HEMATOCRIT 29.8 % (41-53); HEMOGLOBIN 10.1 g/dL (13.5-17.5); LYMPHOCYTES # (AUTO) 0.2 K/uL (1.0-4.8); MEAN CORPUSCULAR HEMOGLOBIN 31.8 pg (26.0-34.0); MEAN CORPUSCULAR HGB CONC 33.8 G/dL (31.0-37.0); MEAN CORPUSCULAR VOLUME 94 fL (80-100); MONOCYTES # (AUTO) 0.5 K/uL (0.1-1.0); MONOCYTES % (AUTO) 7.8 % (2.0-9.0); NEUTROPHILS # (AUTO) 5.6 K/uL (1.8-7.7); PLATELET COUNT (AUTO) 314 K/uL (150-450); RED BLOOD CELL COUNT(AUTO) 3.17 MIL/uL (4.50-5.90); RED CELL DISTRIBUTION WIDTH 16.1 % (11.5-14.5); WHITE BLOOD COUNT (AUTO) 6.2 K/uL (4.5-11.0)
[2016-07-25 06:34] LABS: NEUTROPHILS % (AUTO) 89.1 % (40.0-70.0)
[2016-07-25 07:59] LABS: ABG BASE EXCESS 1.7 mmol/L (-2.0-3.0); ABG HCO3 26.4 mmol/L (22.0-26.0); ABG OXYHEMOGLOBIN 95.9 % (94.0-100.0); ABG PCO2 31 mmHg (35-45); ABG PH 7.516 (7.35-7.450); TEMPERATURE, FAHRENHEIT, BG 98.6 FAHREN (96.0-98.6)
[2016-07-25 08:00] VITALS: BP 131/84
[2016-07-25] MEDS: OXYGEN THERAPY IH SCH ×2 (08:18→20:57)
[2016-07-25] MEDS: IPRATROPIUM BROMIDE 0.5 MG/2.5 ML NEB SOLUTION NEB SCH ×5 (08:18→22:50)
[2016-07-25] MEDS: LOSARTAN POTASSIUM 25 MG TABLET PO SCH (08:35)
[2016-07-25] MEDS: OxyCODONE HCL 5 MG IR TABLET PO SCH ×2 (08:35→20:56)
[2016-07-25] MEDS: TIOTROPIUM BROMIDE 18 MCG/INH HANDIHALER [5] IH SCH (08:35)
[2016-07-25] MEDS: CARVEDILOL 6.25 MG TABLET PO SCH ×2 (08:35→20:56)
[2016-07-25] MEDS: PANTOPRAZOLE SODIUM 40 MG DR TABLET PO SCH (08:35)
[2016-07-25] MEDS: NICOTINE 21 MG/24 HOUR PATCH TD SCH (08:36)
[2016-07-25] MEDS: SIMVASTATIN 20 MG TABLET PO SCH (08:36)
[2016-07-25 09:28] LABS: ALLEN TEST, BLOOD GAS Positive
[2016-07-25] MEDS ORDERED: DEXTROSE 50%-WATER 25 GM/50 ML SYRINGE IVP PRN (10:00)
[2016-07-25] MEDS: INSULIN REGULAR, HUMAN 100 UNITS/ML SQ PRN ×3 (11:39→23:47)
[2016-07-25 12:00] VITALS: BP 128/78
[2016-07-25 12:38] LABS: APPEARANCE,URINE TURBID (CLEAR); GLUCOSE, URINE (UA) 500 mg/dL (NEGATIVE); KETONES,URINE NEGATIVE (NEGATIVE); LEUKOCYTE ESTERASE ,URINE NEGATIVE (NEGATIVE); OCCULT BLOOD,URINE TRACE (NEGATIVE); PROTEIN,URINE SEE CONFIRM (NEGATIVE)
[2016-07-25 12:45] LABS: ADD UA MICROSCOPIC YES
[2016-07-25 12:46] LABS: CALCIUM OXALATE CRYSTALS,UR Many /LPF (None Seen); RBC,URINE 0-2 /HPF (0-2); SULFOSALICYLIC ACID,URINE 2+ (Negative); WBC,URINE None Seen /HPF (0-5)
[2016-07-25 13:10] LABS: GLUCOSE COMMENT 1 Received Meds; GLUCOSE,POINT OF CARE 322 MG/DL (70-110)
[2016-07-25 16:00] VITALS: BP 131/74
[2016-07-25 18:41] LABS: GLUCOSE COMMENT 1 Received Meds; GLUCOSE,POINT OF CARE 306 MG/DL (70-110)
[2016-07-25 20:00] VITALS: BP 131/84
[2016-07-26] VITALS: BP 128/80
[2016-07-26] MEDS: PIPERACILLIN/TAZO 3.375 GM/D5W 50 ML IV SCH ×4 (02:43→19:42)
[2016-07-26] MEDS: ALBUTEROL SULFATE 2.5 MG/0.5 ML NEB SOLUTION NEB SCH ×6 (03:00→22:47)
[2016-07-26 03:26] LABS: GLUCOSE COMMENT 1 Received Meds; GLUCOSE,POINT OF CARE 266 MG/DL (70-110)
[2016-07-26 04:00] VITALS: BP 119/79
[2016-07-26] MEDS: NITROGLYCERIN 2% (1 GM=INCH) PACKET TP SCH ×3 (05:27→17:53)
[2016-07-26] MEDS: MethylPREDNISolone SOD SUCC 125 MG/2 ML VIAL IVP SCH ×3 (05:27→17:53)
[2016-07-26] MEDS: INSULIN REGULAR, HUMAN 100 UNITS/ML SQ PRN ×3 (05:29→18:28)
[2016-07-26 05:32] LABS: EOSINOPHILS % (AUTO) 0 % (1.0-6.0); HEMATOCRIT 31.3 % (41-53); HEMOGLOBIN 10.2 g/dL (13.5-17.5); LYMPHOCYTES # (AUTO) 0.2 K/uL (1.0-4.8); LYMPHOCYTES % (AUTO) 1.6 % (22.0-44.0); MEAN CORPUSCULAR HEMOGLOBIN 30.8 pg (26.0-34.0); MEAN CORPUSCULAR HGB CONC 32.5 G/dL (31.0-37.0); MEAN CORPUSCULAR VOLUME 95 fL (80-100); MONOCYTES # (AUTO) 0.6 K/uL (0.1-1.0); MONOCYTES % (AUTO) 6.1 % (2.0-9.0); NEUTROPHILS # (AUTO) 8.3 K/uL (1.8-7.7); PLATELET COUNT (AUTO) 273 K/uL (150-450); RED CELL DISTRIBUTION WIDTH 16.1 % (11.5-14.5)
[2016-07-26 05:47] LABS: NEUTROPHILS % (AUTO) 92.3 % (40.0-70.0)
[2016-07-26] MEDS ORDERED: SODIUM CHLORIDE 0.9% 250 ML IV ONE (05:51)
[2016-07-26 05:59] LABS: CALCIUM, TOTAL 8.7 mg/dL (8.8-10.5); CREATININE 1.71 mg/dL (0.60-1.30); POTASSIUM 3.4 mmol/L (3.5-5.1)
[2016-07-26] MEDS: IPRATROPIUM BROMIDE 0.5 MG/2.5 ML NEB SOLUTION NEB SCH ×5 (07:31→22:47)
[2016-07-26 08:00] VITALS: BP 135/93
[2016-07-26] MEDS: OXYGEN THERAPY IH SCH ×2 (08:00→20:27)
[2016-07-26 08:35] LABS: RBC MORPHOLOGY COMMENT ABNORMAL RBC MORPH
[2016-07-26] MEDS: PANTOPRAZOLE SODIUM 40 MG DR TABLET PO SCH (09:00)
[2016-07-26] MEDS: TIOTROPIUM BROMIDE 18 MCG/INH HANDIHALER [5] IH SCH (09:00)
[2016-07-26 09:01] LABS: GLUCOSE COMMENT 1 Received Meds; GLUCOSE,POINT OF CARE 235 MG/DL (70-110)
[2016-07-26] MEDS ORDERED: HEPARIN SODIUM 1000 UNITS/NS 500 ML ONE (09:34)
[2016-07-26] MEDS: SIMVASTATIN 20 MG TABLET PO SCH (10:29)
[2016-07-26] MEDS: CARVEDILOL 6.25 MG TABLET PO SCH ×2 (10:29→21:45)
[2016-07-26] MEDS: NICOTINE 21 MG/24 HOUR PATCH TD SCH (10:29)
[2016-07-26] MEDS: OxyCODONE HCL 5 MG IR TABLET PO SCH ×2 (10:30→21:45)
[2016-07-26 10:51] LABS: ABG HCO3 28.4 mmol/L (22.0-26.0); TEMPERATURE, FAHRENHEIT, BG 99.3 FAHREN (96.0-98.6)
[2016-07-26 11:04] LABS: ABG A-A DIFF O2 235.3 mmHg (10-20.0); ABG BASE EXCESS 4.3 mmol/L (-2.0-3.0); ABG OXYHEMOGLOBIN 94.6 % (94.0-100.0); ABG PCO2 34 mmHg (35-45); ABG PH 7.516 (7.35-7.450); ALLEN TEST, BLOOD GAS Positive
[2016-07-26 12:00] VITALS: BP 142/87
[2016-07-26 16:00] VITALS: BP 131/81
[2016-07-26 20:00] VITALS: BP 137/73
[2016-07-26] MEDS: HEPARIN SODIUM,PORCINE 5,000 UNITS/ML VIAL SQ SCH (21:45)
[2016-07-27] VITALS: BP 125/72
[2016-07-27] MEDS: MethylPREDNISolone SOD SUCC 125 MG/2 ML VIAL IVP SCH ×5 (00:03→23:46)
[2016-07-27] MEDS: NITROGLYCERIN 2% (1 GM=INCH) PACKET TP SCH ×5 (00:03→23:46)
[2016-07-27] MEDS: INSULIN REGULAR, HUMAN 100 UNITS/ML SQ PRN ×5 (00:10→23:57)
[2016-07-27] MEDS: ALBUTEROL SULFATE 2.5 MG/0.5 ML NEB SOLUTION NEB SCH ×6 (01:50→22:46)
[2016-07-27] MEDS: IPRATROPIUM BROMIDE 0.5 MG/2.5 ML NEB SOLUTION NEB SCH ×5 (01:50→22:46)
[2016-07-27] MEDS: PIPERACILLIN/TAZO 3.375 GM/D5W 50 ML IV SCH ×4 (02:23→20:37)
[2016-07-27 04:00] VITALS: BP 134/77
[2016-07-27 05:26] LABS: EOSINOPHILS # (AUTO) 0.04 K/uL (0.00-0.70); HEMATOCRIT 33.3 % (41-53); HEMOGLOBIN 10.9 g/dL (13.5-17.5); LYMPHOCYTES # (AUTO) 0.2 K/uL (1.0-4.8); LYMPHOCYTES % (AUTO) 1.9 % (22.0-44.0); MEAN CORPUSCULAR HEMOGLOBIN 30.9 pg (26.0-34.0); MEAN CORPUSCULAR HGB CONC 32.7 G/dL (31.0-37.0); MEAN CORPUSCULAR VOLUME 94 fL (80-100); MONOCYTES # (AUTO) 0.4 K/uL (0.1-1.0); MONOCYTES % (AUTO) 5.1 % (2.0-9.0); NEUTROPHILS # (AUTO) 7.7 K/uL (1.8-7.7); PLATELET COUNT (AUTO) 277 K/uL (150-450); RED BLOOD CELL COUNT(AUTO) 3.54 MIL/uL (4.50-5.90); RED CELL DISTRIBUTION WIDTH 16.4 % (11.5-14.5); WHITE BLOOD COUNT (AUTO) 8.3 K/uL (4.5-11.0)
[2016-07-27 05:31] LABS: NEUTROPHILS % (AUTO) 92.5 % (40.0-70.0)
[2016-07-27 05:47] LABS: ALBUMIN 2.8 g/dL (3.4-5.0); BILIRUBIN,TOTAL 0.5 mg/dL (0.1-1.0); CALCIUM, TOTAL 8.7 mg/dL (8.8-10.5); CREATININE 1.39 mg/dL (0.60-1.30); POTASSIUM 3.8 mmol/L (3.5-5.1); TOTAL PROTEIN, SERUM 6.7 g/dL (6.4-8.2)
[2016-07-27 08:00] VITALS: BP 142/94
[2016-07-27] MEDS: OXYGEN THERAPY IH SCH ×2 (08:05→19:13)
[2016-07-27] MEDS: CARVEDILOL 6.25 MG TABLET PO SCH ×2 (08:18→20:41)
[2016-07-27] MEDS: SIMVASTATIN 20 MG TABLET PO SCH (08:19)
[2016-07-27] MEDS: NICOTINE 21 MG/24 HOUR PATCH TD SCH (08:19)
[2016-07-27] MEDS: TIOTROPIUM BROMIDE 18 MCG/INH HANDIHALER [5] IH SCH (08:19)
[2016-07-27] MEDS: PANTOPRAZOLE SODIUM 40 MG DR TABLET PO SCH (08:19)
[2016-07-27] MEDS: OxyCODONE HCL 5 MG IR TABLET PO SCH ×2 (08:19→20:41)
[2016-07-27] MEDS: HEPARIN SODIUM,PORCINE 5,000 UNITS/ML VIAL SQ SCH ×2 (08:21→20:41)
[2016-07-27 08:38] LABS: ABG A-A DIFF O2 246.7 mmHg (10-20.0); ABG BASE EXCESS 0.6 mmol/L (-2.0-3.0); ABG HCO3 25.6 mmol/L (22.0-26.0); ABG OXYHEMOGLOBIN 94.7 % (94.0-100.0); ABG PCO2 29 mmHg (35-45); ABG PH 7.523 (7.35-7.450); TEMPERATURE, FAHRENHEIT, BG 98.6 FAHREN (96.0-98.6)
[2016-07-27 08:44] LABS: ALLEN TEST, BLOOD GAS Positive
[2016-07-27 12:00] VITALS: BP 127/75
[2016-07-27 16:00] VITALS: BP 132/82
[2016-07-27 18:31] LABS: GLUCOSE,POINT OF CARE 288 MG/DL (70-110)
[2016-07-27 18:36] LABS: GLUCOSE COMMENT 1 Received Meds; GLUCOSE,POINT OF CARE 270 MG/DL (70-110)
[2016-07-27 18:36] LABS: GLUCOSE COMMENT 1 Received Meds; GLUCOSE,POINT OF CARE 321 MG/DL (70-110)
[2016-07-27 18:36] LABS: GLUCOSE COMMENT 1 Received Meds; GLUCOSE,POINT OF CARE 308 MG/DL (70-110)
[2016-07-27 18:36] LABS: GLUCOSE COMMENT 1 Received Meds; GLUCOSE,POINT OF CARE 336 MG/DL (70-110)
[2016-07-27 18:36] LABS: GLUCOSE COMMENT 1 Received Meds; GLUCOSE,POINT OF CARE 308 MG/DL (70-110)
[2016-07-27 20:00] VITALS: BP 137/75
[2016-07-27] MEDS ORDERED: SODIUM CHLORIDE 0.9% 250 ML IV ONE (23:16)
[2016-07-28] VITALS (11 sets, daily range): BP systolic 101–153; BP diastolic 69–96
[2016-07-28 01:32] LABS: GLUCOSE COMMENT 1 Received Meds; GLUCOSE,POINT OF CARE 348 MG/DL (70-110)
[2016-07-28] MEDS: PIPERACILLIN/TAZO 3.375 GM/D5W 50 ML IV SCH ×2 (01:56→08:14)
[2016-07-28] MEDS ORDERED: 0.9% SODIUM CHLORIDE 5 ML NEB SOLUTION NEB ONE (02:19)
[2016-07-28] MEDS: ALBUTEROL SULFATE 2.5 MG/0.5 ML NEB SOLUTION NEB SCH ×2 (02:50→07:49)
[2016-07-28] MEDS: MethylPREDNISolone SOD SUCC 125 MG/2 ML VIAL IVP SCH (05:16)
[2016-07-28] MEDS: NITROGLYCERIN 2% (1 GM=INCH) PACKET TP SCH (05:16)
[2016-07-28] MEDS: INSULIN REGULAR, HUMAN 100 UNITS/ML SQ PRN (05:18)
[2016-07-28 05:24] LABS: EOSINOPHILS % (AUTO) 0 % (1.0-6.0); HEMATOCRIT 35.9 % (41-53); HEMOGLOBIN 11.3 g/dL (13.5-17.5); LYMPHOCYTES # (AUTO) 0.1 K/uL (1.0-4.8); LYMPHOCYTES % (AUTO) 1.1 % (22.0-44.0); MEAN CORPUSCULAR HEMOGLOBIN 30.1 pg (26.0-34.0); MEAN CORPUSCULAR HGB CONC 31.5 G/dL (31.0-37.0); MEAN CORPUSCULAR VOLUME 96 fL (80-100); MONOCYTES # (AUTO) 0.5 K/uL (0.1-1.0); MONOCYTES % (AUTO) 5.3 % (2.0-9.0); NEUTROPHILS # (AUTO) 8.6 K/uL (1.8-7.7); PLATELET COUNT (AUTO) 274 K/uL (150-450); RED BLOOD CELL COUNT(AUTO) 3.75 MIL/uL (4.50-5.90); RED CELL DISTRIBUTION WIDTH 16.2 % (11.5-14.5); WHITE BLOOD COUNT (AUTO) 9.1 K/uL (4.5-11.0)
[2016-07-28 05:29] LABS: NEUTROPHILS % (AUTO) 93.6 % (40.0-70.0)
[2016-07-28 05:39] LABS: ALBUMIN 2.6 g/dL (3.4-5.0); BILIRUBIN,TOTAL 0.5 mg/dL (0.1-1.0); CALCIUM, TOTAL 8.5 mg/dL (8.8-10.5); CREATININE 1.43 mg/dL (0.60-1.30); POTASSIUM 3.7 mmol/L (3.5-5.1); TOTAL PROTEIN, SERUM 6.5 g/dL (6.4-8.2)
[2016-07-28 06:27] LABS: GLUCOSE COMMENT 1 Received Meds; GLUCOSE,POINT OF CARE 309 MG/DL (70-110)
[2016-07-28] MEDS: IPRATROPIUM BROMIDE 0.5 MG/2.5 ML NEB SOLUTION NEB SCH (07:49)
[2016-07-28] MEDS: TIOTROPIUM BROMIDE 18 MCG/INH HANDIHALER [5] IH SCH (08:06)
[2016-07-28] MEDS: SIMVASTATIN 20 MG TABLET PO SCH (08:13)
[2016-07-28] MEDS: OxyCODONE HCL 5 MG IR TABLET PO SCH ×2 (08:13→20:01)
[2016-07-28] MEDS: HEPARIN SODIUM,PORCINE 5,000 UNITS/ML VIAL SQ SCH (08:13)
[2016-07-28] MEDS: PANTOPRAZOLE SODIUM 40 MG DR TABLET PO SCH (08:13)
[2016-07-28] MEDS: NICOTINE 21 MG/24 HOUR PATCH TD SCH (08:14)
[2016-07-28] MEDS: CARVEDILOL 6.25 MG TABLET PO SCH (08:14)
[2016-07-28] MEDS: OxyCODONE HCL/ACETAMINOPHEN 5-325 MG TABLET PO PRN (11:22)
[2016-07-28] MEDS ORDERED: MORPHINE SULFATE 2 MG/ML SYRINGE IVP PRN ×2 (11:30→13:30)
[2016-07-28] MEDS: MORPHINE SULFATE 100 MG/NS/PF 100 ML IV PRN ×3 (13:18→21:42)
[2016-07-28] MEDS ORDERED: LORazepam 2 MG/ML VIAL IVP PRN (15:15)
[2016-07-29] MEDS ORDERED: LORazepam 2 MG/ML VIAL IVP PRN (00:15)
[2016-07-29] MEDS: MORPHINE SULFATE 100 MG/NS/PF 100 ML IV PRN ×2 (02:16→06:52)
[2016-07-29 05:09] VITALS: BP 71/42
[2016-07-29 07:20] VITALS: BP 50/36
== END 2016-07-29 09:45 | disposition expired | DRG 222 ==
LOC: EMS 18:43 → 5S 22:33 → ICU 07-19 15:21 → 5S 07-20 12:53 → ICU 07-23 11:38 → ICUN 07-23 22:20 → ICU 07-28 11:36 → 6N 07-28 20:50
PROVIDERS: ADMIT Hospitalist; ATTEND Hospitalist
PROC: 5A09557 Assistance with Respiratory Ventilation, Greater than 96 Consecutive Hours, Continuous Positive Airway Pressure (ICD-10-PCS; 2016-07-14)
PROC: 0BBC3ZX Excision of Right Upper Lung Lobe, Percutaneous Approach, Diagnostic (ICD-10-PCS; 2016-07-18)
PROC: 4A023N7 Measurement of Cardiac Sampling and Pressure, Left Heart, Percutaneous Approach (ICD-10-PCS; 2016-07-19)
PROC: 02703ZZ Dilation of Coronary Artery, One Artery, Percutaneous Approach (ICD-10-PCS; 2016-07-19)
PROC: B2111ZZ Fluoroscopy of Multiple Coronary Arteries using Low Osmolar Contrast (ICD-10-PCS; 2016-07-19)
PROC: B2151ZZ Fluoroscopy of Left Heart using Low Osmolar Contrast (ICD-10-PCS; 2016-07-19)
PROC: 0JH608Z Insertion of Defibrillator Generator into Chest Subcutaneous Tissue and Fascia, Open Approach (ICD-10-PCS; principal; 2016-07-22)
PROC: 02HK3KZ Insertion of Defibrillator Lead into Right Ventricle, Percutaneous Approach (ICD-10-PCS; 2016-07-22)
PROC: 02H63KZ Insertion of Defibrillator Lead into Right Atrium, Percutaneous Approach (ICD-10-PCS; 2016-07-22)
PROC: 4B02XTZ Measurement of Cardiac Defibrillator, External Approach (ICD-10-PCS; 2016-07-23)
PROC: 0BH17EZ Insertion of Endotracheal Airway into Trachea, Via Natural or Artificial Opening (ICD-10-PCS; 2016-07-24)
PROC: 5A1955Z Respiratory Ventilation, Greater than 96 Consecutive Hours (ICD-10-PCS; 2016-07-24)
PROC: 05HB33Z Insertion of Infusion Device into Right Basilic Vein, Percutaneous Approach (ICD-10-PCS; 2016-07-26)
DX: I50.23 Acute on chronic systolic (congestive) heart failure (principal); I21.4 Non-ST elevation (NSTEMI) myocardial infarction; J96.02 Acute respiratory failure with hypercapnia; N17.0 Acute kidney failure with tubular necrosis; J96.01 Acute respiratory failure with hypoxia; I63.512 Cerebral infarction due to unspecified occlusion or stenosis of left middle cerebral artery; J18.9 Pneumonia, unspecified organism; I13.0 Hypertensive heart and chronic kidney disease with heart failure and stage 1 through stage 4 chronic kidney disease, or unspecified chronic kidney disease; I42.0 Dilated cardiomyopathy; I48.92 Unspecified atrial flutter; J44.1 Chronic obstructive pulmonary disease with (acute) exacerbation; J44.0 Chronic obstructive pulmonary disease with (acute) lower respiratory infection; C34.90 Malignant neoplasm of unspecified part of unspecified bronchus or lung; R65.10 Systemic inflammatory response syndrome (SIRS) of non-infectious origin without acute organ dysfunction; I25.110 Atherosclerotic heart disease of native coronary artery with unstable angina pectoris; E78.5 Hyperlipidemia, unspecified; D64.9 Anemia, unspecified; E11.21 Type 2 diabetes mellitus with diabetic nephropathy; E11.22 Type 2 diabetes mellitus with diabetic chronic kidney disease; E11.65 Type 2 diabetes mellitus with hyperglycemia; E55.9 Vitamin D deficiency, unspecified; E78.00 Pure hypercholesterolemia, unspecified; E87.6 Hypokalemia; N18.3 Chronic kidney disease, stage 3 (moderate); I25.5 Ischemic cardiomyopathy; I46.9 Cardiac arrest, cause unspecified; I48.0 Paroxysmal atrial fibrillation; F17.210 Nicotine dependence, cigarettes, uncomplicated; Z66 Do not resuscitate; K76.0 Fatty (change of) liver, not elsewhere classified; K44.9 Diaphragmatic hernia without obstruction or gangrene; J84.10 Pulmonary fibrosis, unspecified; I73.9 Peripheral vascular disease, unspecified; Z95.5 Presence of coronary angioplasty implant and graft; Z79.899 Other long term (current) drug therapy; Z79.02 Long term (current) use of antithrombotics/antiplatelets; Z79.82 Long term (current) use of aspirin; Z79.84 Long term (current) use of oral hypoglycemic drugs; I25.2 Old myocardial infarction; Z78.1 Physical restraint status
CPT/HCPCS: 32405; 33249; 70450; 71250; 71260; 76000; 82570; 82805; 82962; 83735; 84145; 84156; 84300; 84540; 87040; 87070; 87086; 87205; 92920; 93005; 93306; 93308; 94002; 94003; 94640; 94660; 96374; 99285; C9290; J0690; J1630; J1644; J1940; J2060; J2250; J2270; J2370; J2543; J2704; J2930; J3010; J3490; J7030; J7050; P9046; Q9967